=== PATIENT | female | born 1970 ===

== ENCOUNTER 2017-01-17 06:49 | Emergency (ER) | payer OTHER ==
[2017-01-17 07:04] VITALS: RESP 17
[2017-01-17] MEDS ORDERED: Alum-Mag Hydrox-Simethicone Susp (30 mL) PO STA (07:45)
[2017-01-17] MEDS ORDERED: Alum-Mag Hydrox-Simethicone Susp (30 mL) ONE (07:48)
--- NOTE | 2017-01-17 08:56 | ED PDOC ---
HPI: Abdomen Time Seen by Provider: 01/17/17 07:21 Chief Complaint (Nursing): Abdominal Pain Additional Complaint(s): Patient is a 46 y/o F presenting with 5 days of abdominal pain. She reports periumbilical abdominal pain associated with nausea and diarrhea. She reports that the pain is worsened by eating. She reports persistent nausea but denies vomiting. She denies dysuria, change in urinary habits, or vaginal discharge. She denies chest pain or shortness of breath. She denies hx of abdominal surgeries. She describes the pain as a dull achy pain that is worse with food and does not radiate. Past Medical History Vital Signs: Last Vital Signs Temp 99.0 F 01/17/17 07:01 Pulse 86 01/17/17 07:01 Resp 17 01/17/17 07:01 BP 144/97 H 01/17/17 07:01 Pulse Ox 98 01/17/17 14:44 - Medical History PMH: HTN - Surgical History Surgical History: No Surg Hx - Family History Family History: States: No Known Family Hx - Home Medications Home Medications: Ambulatory Orders Medication Instructions Recorded Cyclobenzaprine [Cyclobenzaprine 10 mg PO TID PRN #15 tab 10/16/16 HCl] Naproxen [Naprosyn] 500 mg PO BID PRN #15 tablet 10/16/16 Doxycycline Hyclate 100 mg PO BID #28 capsule 01/17/17 metroNIDAZOLE [Flagyl] 500 mg PO BID #28 tab 01/17/17 - Allergies Allergies/Adverse Reactions: Allergies Allergy/AdvReac Type Severity Reaction Status Date / Time No Known Allergies Allergy Verified 10/16/16 08:20 Review of Systems Constitutional: Negative for: Fever, Chills, Malaise, Weight loss Cardiovascular: Negative for: Chest Pain, Palpitations Respiratory: Negative for: Cough, Shortness of Breath, SOB with Exertion Gastrointestinal: Positive for: Nausea, Abdominal Pain, Diarrhea. Negative for : Vomiting, Constipation Genitourinary Female: Negative for: Dysuria, Vaginal Discharge, Vaginal Bleeding Musculoskeletal: Negative for: Back Pain Skin: Negative for: Rash Neurological: Negative for: Weakness Psych: Negative for: Depression Physical Exam - Physical Exam Appears: Positive for: Well, Non-toxic, No Acute Distress Neck: Positive for: Normal Cardiovascular/Chest: Positive for: Regular Rate, Rhythm ( ), Chest Non Tender Respiratory: Positive for: Normal Breath Sounds. Negative for: Rales, Rhonchi, Stridor Gastrointestinal/Abdominal: Positive for: Soft, Tenderness (LLQ). Negative for : Mass, Distended, Guarding Pelvic Exam: Positive for: External Exam Normal, Discharge (yellow discharge), Other (chaperoned by chargeback specialistVIOLA lucas and flor Denis). Negative for: No Cerv. Motion Tender Back: Positive for: Normal Inspection. Negative for: L CVA Tenderness, R CVA Tenderness Extremity: Positive for: Normal ROM Neurologic/Psych: Positive for: Alert, board certified family physician II-XII, Oriented - Laboratory Results Result Diagrams: 01/17/17 07:43 01/17/17 07:43 - ECG O2 Sat by Pulse Oximetry: 98 Medical Decision Making Medical Decision Making: Patient has LLQ pain on exam. Differential dx includes but not limited to: gastrenteritis, pancreatitis, uti, appendicitis, gerd, pid --ivf, pain medication --labs --ct 12:02PM CT shows tubular structure in L pelvis concerning for hydrosalpinx. Ultrasound ordered. WBC is elevated. UA and poc negative. Pelvic exam shows some yellow discharge. Gonorrhea and chlamydia added and genital culture sent 2:10PM U/s shows "tubular cystic structure adjacent to L uterus suspiucious for hydrosalpinx. Will treat for PID due to vaginal discharge. Consult placed to Dr. Vee, public works director. As patient does not desire further fertility and due to age , she reports hydrosalpinx does not need to be removed. She agrees with ceftriaxone and rx for doxycline and metronidazole with public works director outpatient follow -up. Patient does have elevated wbc but no abscess or other pathology noted on ct or ultrasound. She is tolerating po, afebrile and well appearing. Used histology technologist and patient understands the need to follow-up with GI and ob/ bonbon dipper (as complaints may be unrelated) and return immediately with any worsening symptoms. Disposition - Clinical Impression Clinical Impression: Hydrosalpinx, Abdominal pain - Disposition Referrals: Kailyn Vee MD [Staff Provider] - Abdulaziz Curiel MD [Staff Provider] - Disposition: Routine/Home Disposition Time: 14:16 Condition: GOOD Additional Instructions: Follow-up with public works director for further evaluation of hydrosalpinx. Follow up with GI for further evaluation of abdominal pain. Return to ED if condition worsens Prescriptions: Doxycycline Hyclate 100 mg PO BID #28 capsule metroNIDAZOLE [Flagyl] 500 mg PO BID #28 tab Instructions: Abdominal Pain (ED) Print Language: DIVEHI
[2017-01-17 08:57] LABS: BASO % 0.2 % (0.0-2.0); EOS # 0.1 K/uL (0.0-0.7); EOS % 0.3 % (0.0-4.0); HEMATOCRIT 39.8 % (34.0-47.0); LYMPH # 1.8 K/uL (1.0-4.3); MEAN CELL VOLUME 92.3 fl (81.0-99.0); MEAN CORPUSCULAR HEMOGLOBIN 30.8 pg (27.0-31.0); MEAN CORPUSCULAR HGB CONC 33.4 g/dL (33.0-37.0); MEAN PLATELET VOLUME 8.4 fl (7.2-11.7); MONO # 1.2 K/uL (0.0-0.8); MONO % 7.1 % (0.0-10.0); NEUT # 13.3 K/uL (1.8-7.0); NEUT % 81.4 % (50.0-75.0); RED CELL DISTRIBUTION WIDTH 13.7 % (11.5-14.5); WHITE BLOOD COUNT 16.3 K/uL (4.8-10.8)
[2017-01-17 09:00] LABS: ALB/GLOB RATIO 1.1 (1.0-2.1); ALKALINE PHOSPHATASE 88 U/L (38-126); ALT/SGPT 29 U/L (9-52); AST/SGOT 30 U/L (14-36); BILIRUBIN,TOTAL 0.8 mg/dl (0.2-1.3); BLOOD UREA NITROGEN 12 mg/dl (7-17); CALCIUM 9.1 mg/dL (8.4-10.2); CARBON DIOXIDE 24 mmol/L (22-30); CHLORIDE 102 mmol/L (98-107); GFR AFRICAN-AMERICAN > 60; GLUCOSE,RANDOM 89 mg/dL (65-105); MAGNESIUM 2.2 MG/DL (1.6-2.3); PHOSPHOROUS 4.1 mg/dl (2.5-4.5); SODIUM 138 mmol/l (132-148); TOTAL PROTEIN 8.3 G/DL (6.3-8.2)
[2017-01-17 09:02] LABS: POTASSIUM 4.2 MMOL/L (3.6-5.0)
[2017-01-17 09:13] LABS: LIPASE 89 U/L (23-300)
[2017-01-17 09:23] LABS: RBC URINE 1 /hpf (0-3); URINE BILIRUBIN NEGATIVE (NEGATIVE); URINE BLOOD MODERATE (NEGATIVE); URINE COLOR YELLOW (YELLOW); URINE GLUCOSE (UA) NEGATIVE (Normal); URINE KETONE NEGATIVE (NEGATIVE); URINE LEUKOCYTE ESTERASE NEGATIVE Leu/uL (Negative); URINE PROTEIN NEGATIVE (NEGATIVE); URINE UROBILINOGEN 0.2 mg/dL (0.2-1.0); WBC URINE 2 /hpf (0-5)
[2017-01-17] MEDS ORDERED: Iohexol 300 100 ML IJ ONE (10:49)
[2017-01-17] MEDS ORDERED: Sodium Chloride 0.9% 50 ML IV ONE (10:50)
--- NOTE | 2017-01-17 11:55 | CT ---
PROCEDURE: CT Abdomen and Pelvis with contrast HISTORY: LLQ pain COMPARISON: None. TECHNIQUE: Contrast dose: 95 cc Omnipaque 300. Axial and reformatted coronal and sagittal CT images of the abdomen and pelvis were obtained after IV contrast administration. No oral contrast was given. Radiation dose: Total exam DLP = 1049.06 mGy-cm. This CT exam was performed using one or more of the following dose reduction techniques: Automated exposure control, adjustment of the mA and/or kV according to patient size, and/or use of iterative reconstruction technique. FINDINGS: LOWER THORAX: Unremarkable. LIVER: Unremarkable. No gross lesion or ductal dilatation. GALLBLADDER AND BILE DUCTS: Unremarkable. PANCREAS: Unremarkable. No gross lesion or ductal dilatation. SPLEEN: Unremarkable. ADRENALS: Unremarkable. No mass. KIDNEYS AND URETERS: Unremarkable. No hydronephrosis. No solid mass. 1.6 centimeter cyst at the lower pole of the right kidney. VASCULATURE: Unremarkable. No aortic aneurysm. BOWEL: No evidence of acute pathology in the GI system. Partially collapsed left: . APPENDIX: Normal appendix. PERITONEUM: Unremarkable. No free fluid. No free air. LYMPH NODES: Unremarkable. No enlarged lymph nodes. BLADDER: Unremarkable. REPRODUCTIVE: Tubular structure seen to the left aspect of the uterus and pelvis likely represent hydrosalpinx. The uterus is otherwise unremarkable. BONES: No acute fracture. OTHER FINDINGS: None. IMPRESSION: Tubular structure at the left aspect of the pelvis suspicious for hydrosalpinx. Further assessment by ultrasound is suggested. No evidence of diverticulitis. Partially collapsed left colon. No evidence of acute pathology in the upper abdomen.
--- NOTE | 2017-01-17 13:59 | US ---
HISTORY: L sided pain, CT showed ?hydrosalpinx COMPARISON: Comparison is made to the previous same-day CT of the abdomen and pelvis. TECHNIQUE: Only transabdominal ultrasound examination of the pelvis was performed. FINDINGS: UTERUS: Measures 9.4 x 4.2 x 6 cm. Normal in size and appearance. No fibroid or other mass lesion seen. ENDOMETRIUM: Measures 3 mm in diameter. Unremarkable. CERVIX: No cervical abnormality identified. RIGHT OVARY: Was not visualized. LEFT OVARY: Measures 3.6 x 2.6 x 2.7 cm. No solid mass. Normal flow. There is a tubular anechoic structure seen adjacent to the left ovary and uterus suspicious for hydrosalpinx. FREE FLUID: No significant free fluid noted. OTHER FINDINGS: None. IMPRESSION: Tubular cystic structure adjacent to the left ovary and uterus suspicious for hydrosalpinx. Nonvisualization of the right ovary.
[2017-01-17] MEDS ORDERED: cefTRIAXone (Rocephin) 250 mg Inj IM STA (14:42)
[2017-01-17] MEDS ORDERED: Sterile Water 10 ML IV ONE (14:55)
[2017-01-17] MEDS ORDERED: cefTRIAXone (Rocephin) 250 mg Inj ONE (14:55)
[2017-01-17 15:17] VITALS: BP 119/69; PULSE 82; TEMP 98.9; O2SAT 99
== END 2017-01-17 15:17 | disposition home or self-care (01) ==
LOC: H.ER 06:49
DX: R10.32 Left lower quadrant pain (principal); N70.11 Chronic salpingitis; N83.202 Unspecified ovarian cyst, left side; I10 Essential (primary) hypertension; N73.9 Female pelvic inflammatory disease, unspecified

== ENCOUNTER 2017-12-27 13:08 | Emergency (ER) | payer OTHER ==
[2017-12-27 13:13] VITALS: O2SAT 98
[2017-12-27] MEDS ORDERED: Sodium Chloride 0.9% 1,000 ML IV STA (13:47)
--- NOTE | 2017-12-27 13:49 | ED PDOC ---
HPI: Abdomen Time Seen by Provider: 12/27/17 13:47 Chief Complaint (Nursing): Abdominal Pain Chief Complaint (Provider): VOMITING/DIARRHEA History Per: Patient (47 Y/O FEMALE HERE WITH MULTIPLE EPISODES OF WATERY DIARRHEA TODAY ASSOCIATED WITH FEVER SINCE YESTEDAY. NOTES ONE EPISODE OF VOMITING TODAY. NO H/O ABD SURGERIES. HAS ONGOING EPIGASTRIC PAIN INTERMITTENT AFTER FOODS. NO ILL CONTACTS. ) Past Medical History Reviewed: Historical Data, Nursing Documentation, Vital Signs Vital Signs: Last Vital Signs Temp 98.7 F 12/27/17 13:10 Pulse 93 H 12/27/17 13:10 Resp 18 12/27/17 13:10 BP 130/83 12/27/17 13:10 Pulse Ox 98 12/27/17 18:11 - Medical History PMH: HTN - Family History Family History: States: No Known Family Hx - Home Medications Home Medications: Ambulatory Orders Medication Instructions Recorded Cyclobenzaprine [Cyclobenzaprine 10 mg PO TID PRN #15 tab 10/16/16 HCl] Naproxen [Naprosyn] 500 mg PO BID PRN #15 tablet 10/16/16 Doxycycline Hyclate 100 mg PO BID #28 capsule 01/17/17 metroNIDAZOLE [Flagyl] 500 mg PO BID #28 tab 01/17/17 Famotidine [Pepcid] 20 mg PO BID #10 tab 12/27/17 Ondansetron ODT [Zofran ODT] 4 mg PO Q8 PRN #5 odt 12/27/17 - Allergies Allergies/Adverse Reactions: Allergies Allergy/AdvReac Type Severity Reaction Status Date / Time No Known Allergies Allergy Verified 10/16/16 08:20 Review of Systems ROS Statement: Except As Marked, All Systems Reviewed And Found Negative Gastrointestinal: Positive for: Vomiting, Diarrhea Physical Exam - Reviewed Nursing Documentation Reviewed: Yes Vital Signs Reviewed: Yes - Physical Exam Appears: Positive for: Well, Non-toxic, No Acute Distress Head Exam: Positive for: ATRAUMATIC, NORMAL INSPECTION, NORMOCEPHALIC Skin: Positive for: Normal Color, Warm, DRY Eye Exam: Positive for: EOMI, Normal appearance, PERRL ENT: Positive for: Normal ENT Inspection Neck: Positive for: Normal, Painless ROM Cardiovascular/Chest: Positive for: Regular Rate, Rhythm Respiratory: Positive for: CNT, Normal Breath Sounds Gastrointestinal/Abdominal: Positive for: Normal Exam, Soft Back: Positive for: Normal Inspection Extremity: Positive for: Normal ROM Neurologic/Psych: Positive for: Alert, Oriented - Laboratory Results Result Diagrams: 12/27/17 14:20 12/27/17 18:30 - ECG O2 Sat by Pulse Oximetry: 98 - Progress ED Course And Treament: PEPCID 20 MG IV X 1 DOSE ZOFRAN 4 MG IV X 1 DOSE NS 1 LITER WIDE OPEN kdur 60 meq x 1 dose NS 2nd liter in ED Disposition - Clinical Impression Clinical Impression: Gastroenteritis, Hypokalemia - Patient ED Disposition Is Patient to be Admitted: No - Disposition Referrals: [facility] [place] [Outside] Disposition: Routine/Home Disposition Time: 19:37 Condition: FAIR Additional Instructions: [facility] Prescriptions: Famotidine [Pepcid] 20 mg PO BID #10 tab Ondansetron ODT [Zofran ODT] 4 mg PO Q8 PRN #5 odt PRN Reason: Nausea/Vomiting Instructions: Gastroenteritis (ED) Forms: [employer] (German), [facility] ED School/Work Excuse Print Language: TAJIK
[2017-12-27 14:25] LABS: BASO % 0.1 % (0.0-2.0); HEMOGLOBIN 13.9 g/dL (12.0-16.0); LYMPH # 0.7 K/uL (1.0-4.3); LYMPH % 3.5 % (20.0-40.0); MEAN CELL VOLUME 91.6 fl (81.0-99.0); MEAN CORPUSCULAR HEMOGLOBIN 30.9 pg (27.0-31.0); MEAN CORPUSCULAR HGB CONC 33.8 g/dL (33.0-37.0); MEAN PLATELET VOLUME 8.2 fl (7.2-11.7); MONO # 0.9 K/uL (0.0-0.8); MONO % 4.6 % (0.0-10.0); NEUT # 17.9 K/uL (1.8-7.0); NEUT % 91.8 % (50.0-75.0); PLATELET COUNT 208 K/uL (130-400); RED CELL DISTRIBUTION WIDTH 13.6 % (11.5-14.5); WHITE BLOOD COUNT 19.5 K/uL (4.8-10.8)
[2017-12-27 14:41] LABS: ALBUMIN 3.9 g/dL (3.5-5.0); ALT/SGPT 37 U/L (9-52); AST/SGOT 21 U/L (14-36); BLOOD UREA NITROGEN 16 mg/dl (7-17); CALCIUM 8.8 mg/dL (8.4-10.2); GFR AFRICAN-AMERICAN > 60; GFR NON-AFRICAN AMERICAN > 60; LIPASE 82 U/L (23-300)
[2017-12-27 14:57] LABS: BANDS 5 % (0-2); LYMPHOCYTE 10 % (20-50); MONOCYTE 6 % (0-10); NEUTROPHIL 79 % (42-75); TOTAL CELLS COUNTED 100
[2017-12-27 14:58] LABS: PLATELET ESTIMATE NORMAL (NORMAL)
[2017-12-27] MEDS ORDERED: Potassium Chloride 20 mEq ER Tab PO STA (15:32)
[2017-12-27] MEDS ORDERED: Sodium Chloride 0.9% 1,000 ML IV SCH (15:45)
[2017-12-27] MEDS ORDERED: Potassium Chloride 20 mEq ER Tab PO ONE (15:52)
[2017-12-27 19:50] VITALS: BP 137/79; PULSE 84; RESP 16; TEMP 100.5
== END 2017-12-27 20:40 | disposition home or self-care (01) ==
LOC: H.ER 13:08
DX: K52.9 Noninfective gastroenteritis and colitis, unspecified (principal); E87.6 Hypokalemia; I10 Essential (primary) hypertension
CPT/HCPCS: 80053; 81025; 83690; 83735; 84132; 85025; 87045; 87177; 87209; 96374; 96375; 99283; J2405; J7040